=== PATIENT | male | born 1965 | race Caucasian/White ===

== ENCOUNTER → 2021-02-08 | Day surgery (SDC) | payer OTHER ==
[~2021-02-08] VITALS: Ht 172.7 cm; Wt 94.8 kg
[~2021-02-08] MED LIST: ALL DAY ALLERGY10 M2 PO; BUPROPION XL300 MG PO; BUSPIRONE HCL15 MG PO; BUSPIRONE HCL30 MG PO; CIMETIDINE800 MG PO; CYMBALTA 30MG C30 MG PO; HCTZ12.5 MG PO; HYDROCODON-ACE1 EAC2 PO; LIPITOR20 MG PO; MOBIC7.5 MG PO; NEURONTIN300 MG PO; NORVASC2.5 MG PO; SEROQUEL 100MG100 MG PO; SINGULAIR10 MG PO; SUCRALFATE1 GM PO; SYMBICORT 16010.2 GM INH; TIZANIDINE HCL4 MG PO; VENTOLIN HFA IN18 GM INH; WELLBUTRIN XL150 MG PO; ZOLOFT50 MG PO; ZOVIRAX200 MG PO
[2021-02-08 09:15] LABS: BASOPHIL 0.3 % (0-2); EOSINOPHIL 0.1 % (0-5); HCT 37.8 % (42.0-52.0); LYMPHOCYTE 14.1 % (15-48); MCH 30.6 pg (25.0-31.0); MCHC 34.4 g/dL (32.0-36.0); MCV 88.9 fL (78.0-100.0); MONOCYTE 8.2 % (0-12); MPV 9.5 fL (6.0-9.5); NEUTROPHIL 76.5 % (41-80); NRBC 0; PLT 289 K/uL (150-400); RBC 4.25 M/uL (4.70-6.00); RDW 13.2 % (11.5-14.0); WBC 15.7 K/uL (4.0-10.5)
[2021-02-08 09:22] LABS: INR 1.16 (0.9-1.2); PROTHROMBIN TIME 14.2 SECONDS (11.8-13.4); PTT 28.8 SECONDS (24.4-34.7)
[2021-02-08 09:29] LABS: ALBUMIN 3.2 g/dL (3.4-5.0); BILIRUBIN - TOTAL 0.5 mg/dL (0.2-1.0); BUN/CREAT RATIO (CALC) 13.7 RATIO; CREATININE 1.17 mg/dL (0.67-1.17); POTASSIUM 3.2 mmol/L (3.5-5.1); TOTAL PROTEIN 7.2 g/dL (6.4-8.2)
== END | disposition home or self-care (01) ==
LOC: FAS 08:38
PROVIDERS: Oral & Maxillofacial Surgery
DX: K02.9 Dental caries, unspecified (principal); K04.7 Periapical abscess without sinus; J43.9 Emphysema, unspecified; B19.10 Unspecified viral hepatitis B without hepatic coma; M54.9 Dorsalgia, unspecified; G89.29 Other chronic pain; E78.00 Pure hypercholesterolemia, unspecified; J45.909 Unspecified asthma, uncomplicated; K21.9 Gastro-esophageal reflux disease without esophagitis; F41.9 Anxiety disorder, unspecified; F17.200 Nicotine dependence, unspecified, uncomplicated
CPT/HCPCS: 36415; 71045; 80053; 85025; 85610; 85730; 93005; J1100; J2250; J2405; J2704; J2710; J3010; J7120